=== PATIENT | male | born 1985 | race Caucasian/White ===

== ENCOUNTER 2021-11-28 17:59 | Emergency (ER) | payer OTHER ==
[~2021-11-28] VITALS: Ht 180.3 cm; Wt 106.6 kg
[2021-11-28 18:09] VITALS: BP 101/60
[2021-11-28 19:37] VITALS: BP 101/60
--- NOTE | 2021-11-28 19:39 | NUR ---
PATIENT BIB [employer]. PATIENT EXAMINED BY DR. VARGHESE. PATIENT MEDICALLY CLEARED AND RELEASED IN CUSTODY IN STABLE CONDITION. ORIGINAL PRE-BOOK FORM GIVEN TO OFFICER MICHAEL.
== END 2021-11-28 19:19 ==
LOC: MED 17:59
DX: S40.819A Abrasion of unspecified upper arm, initial encounter (principal); S30.810A Abrasion of lower back and pelvis, initial encounter; X08.8XXA Exposure to other specified smoke, fire and flames, initial encounter; Y93.89 Activity, other specified; Y92.89 Other specified places as the place of occurrence of the external cause; Y99.8 Other external cause status
CPT/HCPCS: 99283